=== PATIENT | male | born 1965 | race Caucasian/White ===

== ENCOUNTER 2018-03-31 15:00 | Observation (INO) ==
[2018-03-31] MEDS ORDERED: 0.9 % Sodium Chloride 1,000 ML IVC ONE (15:40)
[2018-03-31] MEDS ORDERED: Isovue-370 500 ML INFUS..BTL IV ONE (15:40)
--- NOTE | 2018-03-31 15:43 | Emergency Department Note ---
Disposition Clinical Impression: Chest pain Qualifiers: Chest pain type: unspecified Qualified Code(s): R07.9 - Chest pain, unspecified Leg pain Qualifiers: Laterality: left Qualified Code(s): M79.605 - Pain in left leg Disposition: Admitted As Inpatient Condition: Fair Referrals: Ras Gandhi DO [Primary Care Provider] - Forms: ED Satisfaction Letter Time of Disposition: 17:54 Chest Pain HPI - General Chief Complaint: ED Chest Pain Stated Complaint: chest pain Source: patient Mode of arrival: private vehicle Limitations: no limitations Vital Signs Reviewed: Yes Nursing Notes Reviewed: Yes - History of Present Illness Pt complaint: chest pain Onset (ago): hour(s) Duration: constant Onset: awoke with symptoms Pain Location: substernal Severity: moderate (But better now than it was earlier today) Severity scale (1-10): 6 Quality: heaviness Pain Radiation: back Improves with: nothing Worsens with: nothing Associated symptoms: Reports: diaphoresis, other (Complains of left leg pain for months) Treatments prior to arrival chest pain: none - Related Data Home Medications Medication Instructions Recorded Confirmed Lisinopril-HCTZ 10-12.5 [Prinzide 1 each PO DAILY 03/31/18 03/31/18 10-12.5] Allergies Allergy/AdvReac Type Severity Reaction Status Date / Time No Known Allergies Allergy Verified 03/31/18 15:02 All systems ED: reviewed and negative except as stated. Constitutional: Denies: fever, chills ENT ED: Denies: ear pain, throat pain, congestion Cardiovascular: Reports: chest pain. Denies: palpitations Respiratory: Reports: dyspnea. Denies: cough Gastrointestinal: Denies: abdominal pain, nausea, vomiting Musculoskeletal: Reports: back pain Integumentary: Denies: rash Neurological: Denies: headache Chest Pain PMH - Past Medical History Medical history: Reports: hyperlipidemia, hypertension Psychiatric history: Reports: no psych history - Social History Smoking Status: Never smoker Alcohol use: Reports: none Drug use: Reports: none Physical Exam - General Limitations: no limitations General appearance: alert, in no apparent distress - Head Head exam: atraumatic, normocephalic, normal inspection - Eye Eye exam: Present: normal appearance, PERRL, EOMI. Absent: scleral icterus, conjunctival injection - ENT ENT exam: normal exam, normal oropharynx, mucous membranes moist, normal external ear exam - Neck Neck exam: Present: normal inspection, trachea midline - Chest Chest inspection: Present: normal inspection, symmetric chest wall rise. Absent : tenderness - Respiratory Respiratory exam: Present: normal lung sounds bilaterally. Absent: respiratory distress, wheezes - Cardiovascular Cardiovascular exam: Present: regular rate, normal rhythm, normal heart sounds - Abdominal Exam Abdominal exam: Present: soft, Non-Tender - Extremities Exam Extremities exam: Present: normal inspection. Absent: pedal edema - Neurological Exam Neurological exam: Present: alert, oriented X3 - Psychiatric Psychiatric exam: Present: normal affect, normal mood - Skin Skin exam: Present: warm, dry. Absent: rash Course Course Narrative: Patient presents after waking up this morning having had an episode of chest discomfort that lasted about 20 minutes intensely but that went away although he continued to have a mild discomfort in his chest. Reportedly he was lightheaded with that. He got stuck together and went to work but was feeling bad and weak and run down at work so he went home. Called his came home from work and she saw him as being diaphoretic and she checked his blood pressures and they were apparently low and his heart rate was apparently low as well. She brought him here to emergency part. At this time. Vital signs are fine. He continues to have some discomfort in his chest although his EKG does not show any acute ischemic changes. He has been having complaint of left leg pain supposedly was scheduled to get a Doppler of his left leg but he never followed through with it. I think is unlikely nancy had such massive PE that it caused hypotension but also bradycardia and he recovered from it. Nonetheless we will check for PE as well as dissection and we will do a cardiac workup. We the patient IV fluids. Disposition will be based on diagnostic results and reevaluation. - Reevaluation(s) Reevaluation #1: CTA of the chest was negative. Labs look okay. EKG looks fine. Patient's vital signs are great and he is essentially symptomatically here in the department. So not seeing an acute life for any problem at this moment. However a patient with chest pain and hypotension and relative bradycardia has to be evaluated for inferior cardiac symptoms. I spoke with Dr. Garrido, the hospitalist. We will bring the patient into the hospital. We will have him on Lovenox. He will get serial enzymes. He will get Dopplers in the morning. Time: 17:51 - Consultations Consultation #1: Dr. Garrido, hospitalist - I discussed case with the hospitalist. He accepted the patient for admission. We will start him on Lovenox for now. Time: 17:52 Vital Signs Temperature 98.8 F 03/31/18 15:03 Pulse Rate 92 03/31/18 15:03 Respiratory Rate 18 03/31/18 15:03 Blood Pressure 137/77 03/31/18 15:03 O2 Sat by Pulse Oximetry 93 03/31/18 15:03 Temperature 98.8 F 03/31/18 15:03 Pulse Rate 86 03/31/18 17:40 Respiratory Rate 18 03/31/18 17:40 Blood Pressure 130/79 03/31/18 17:40 O2 Sat by Pulse Oximetry 96 03/31/18 17:40 Oxygen Delivery Oxygen Delivery Room Air Chest Pain - Medical Records Medical records reviewed: Yes I reviewed the patient's medical records. - Lab Data Lab results reviewed: Yes I reviewed the patient's lab results. Result diagrams: 03/31/18 15:47 03/31/18 15:47 Lab Results 03/31/18 03/31/18 03/31/18 Range/Units 15:47 15:47 15:47 WBC 9.9 (4.3-11.1) K/mcL RBC 4.84 (4.19-5.50) M/mcL Hgb 15.1 (12.9-16.9) g/dL Hct 43.9 (37.5-50.1) % MCV 90.7 (83.0-100.0) fL MCH 31.2 (28.0-33.3) pg MCHC 34.4 (31.6-35.5) g/dL RDW 12.2 (11.5-14.5) % Plt Count 189 (140-400) K/mcL MPV 10.5 (9.4-12.4) fL Immature Gran % 0.3 (0-4) % Seg Neutrophils % 82.2 % Lymphocytes % 9.1 % Monocytes % 8.1 % Eosinophils % 0.1 % Basophils % 0.2 % Neutrophils # 8.2 (1.6-8.9) K/mcL Lymphocytes # 0.9 (0.6-4.6) K/mcL Monocytes # 0.8 (0.0-1.3) K/mcL Eosinophils # 0.0 (0.0-0.6) K/mcL Basophils # 0.0 (0.0-0.2) K/mcL PT 12.5 H (9.4-12.1) Seconds INR 1.2 APTT 33.9 (26.0-36.0) Seconds D-Dimer 786 H (0-500) ng/mLFEU Sodium 135 L (136-145) mEq/L Potassium 3.8 (3.5-5.1) mEq/L Chloride 102 (98-107) mEq/L Carbon Dioxide 26 (23-29) mEq/L BUN 11 (6-20) mg/dL Creatinine 1.09 (0.70-1.30) mg/dL Est GFR ( Amer) > 60 (> 60) Est GFR (Non-Af Amer) > 60 (> 60) BUN/Creatinine Ratio 10 (6-26) Glucose 113 H (70-105) mg/dL Calculated Osmolality 280 (280-300) Lactic Acid (0.5-2.2) mmol/L Calcium 9.0 (8.6-10.3) mg/dL Total Bilirubin 0.8 (0.3-1.0) mg/dL Direct Bilirubin 0.1 (0.0-0.2) mg/dL Indirect Bilirubin 0.7 (0.0-1.2) mg/dL AST 17 (13-39) Units/L ALT 19 (7-52) Units/L Alkaline Phosphatase 82 (34-104) Units/L Troponin I < 0.03 (< 0.04) ng/mL B-Natriuretic Peptide (Less than 100) pg/mL Serum Total Protein 6.7 (6.4-8.9) g/dL Albumin 4.2 (3.5-5.7) g/dL Globulin 2.5 (2.4-3.5) g/dL Albumin/Globulin Ratio 1.7 (1.1-2.2) Lipase 22 (11-82) Units/L 03/31/18 03/31/18 Range/Units 15:47 15:47 WBC (4.3-11.1) K/mcL RBC (4.19-5.50) M/mcL Hgb (12.9-16.9) g/dL Hct (37.5-50.1) % MCV (83.0-100.0) fL MCH (28.0-33.3) pg MCHC (31.6-35.5) g/dL RDW (11.5-14.5) % Plt Count (140-400) K/mcL MPV (9.4-12.4) fL Immature Gran % (0-4) % Seg Neutrophils % % Lymphocytes % % Monocytes % % Eosinophils % % Basophils % % Neutrophils # (1.6-8.9) K/mcL Lymphocytes # (0.6-4.6) K/mcL Monocytes # (0.0-1.3) K/mcL Eosinophils # (0.0-0.6) K/mcL Basophils # (0.0-0.2) K/mcL PT (9.4-12.1) Seconds INR APTT (26.0-36.0) Seconds D-Dimer (0-500) ng/mLFEU Sodium (136-145) mEq/L Potassium (3.5-5.1) mEq/L Chloride (98-107) mEq/L Carbon Dioxide (23-29) mEq/L BUN (6-20) mg/dL Creatinine (0.70-1.30) mg/dL Est GFR ( Amer) (> 60) Est GFR (Non-Af Amer) (> 60) BUN/Creatinine Ratio (6-26) Glucose (70-105) mg/dL Calculated Osmolality (280-300) Lactic Acid 1.1 (0.5-2.2) mmol/L Calcium (8.6-10.3) mg/dL Total Bilirubin (0.3-1.0) mg/dL Direct Bilirubin (0.0-0.2) mg/dL Indirect Bilirubin (0.0-1.2) mg/dL AST (13-39) Units/L ALT (7-52) Units/L Alkaline Phosphatase (34-104) Units/L Troponin I (< 0.04) ng/mL B-Natriuretic Peptide 31 (Less than 100) pg/mL Serum Total Protein (6.4-8.9) g/dL Albumin (3.5-5.7) g/dL Globulin (2.4-3.5) g/dL Albumin/Globulin Ratio (1.1-2.2) Lipase (11-82) Units/L - Radiology Data Radiology results reviewed: Yes I reviewed the patient's radiology results. - EKG Data EKG attestation: Yes I reviewed and interpreted this EKG. EKG results narrative: Twelve-lead EKG performed at 1507 p.m. shows sinus rhythm at a rate of 92. Normal axis. Good R-wave progression across precordium. No acute ischemic changes. Intervals are within normal limits. Interpretation: no acute changes
[2018-03-31 15:55] LABS: Basophils % 0.2 %; Eosinophils % 0.1 %; Hematocrit 43.9 % (37.5-50.1); Hemoglobin 15.1 g/dL (12.9-16.9); Immature Granulocytes % 0.3 % (0-4); Lymphocytes # 0.9 K/mcL (0.6-4.6); Lymphocytes % 9.1 %; Mean Corpuscular HGB Conc 34.4 g/dL (31.6-35.5); Mean Corpuscular Hemoglobin 31.2 pg (28.0-33.3); Mean Corpuscular Volume 90.7 fL (83.0-100.0); Mean Platelet Volume 10.5 fL (9.4-12.4); Monocytes # 0.8 K/mcL (0.0-1.3); Monocytes % 8.1 %; Neutrophils # 8.2 K/mcL (1.6-8.9); Platelet Count 189 K/mcL (140-400); Red Blood Count 4.84 M/mcL (4.19-5.50); Red Cell Distribution Width 12.2 % (11.5-14.5); Segmented Neutrophils % 82.2 %
[2018-03-31 16:03] LABS: INR 1.2; Prothrombin Time 12.5 Seconds (9.4-12.1)
[2018-03-31 16:05] LABS: Activated Partial Thrombo Time 33.9 Seconds (26.0-36.0)
[2018-03-31 16:11] LABS: Alanine Aminotransferase 19 Units/L (7-52); Albumin 4.2 g/dL (3.5-5.7); Albumin/Globulin Ratio 1.7 (1.1-2.2); Alkaline Phosphatase 82 Units/L (34-104); Aspartate Amino Transferase 17 Units/L (13-39); BUN/Creatinine Ratio 10 (6-26); Bilirubin,Direct 0.1 mg/dL (0.0-0.2); Bilirubin,Indirect 0.7 mg/dL (0.0-1.2); Bilirubin,Total 0.8 mg/dL (0.3-1.0); Blood Urea Nitrogen 11 mg/dL (6-20); Carbon Dioxide 26 mEq/L (23-29); Chloride 102 mEq/L (98-107); Globulin 2.5 g/dL (2.4-3.5); Glucose 113 mg/dL (70-105); Lipase 22 Units/L (11-82); Osmolality,Calculated 280 (280-300); Potassium 3.8 mEq/L (3.5-5.1); Sodium 135 mEq/L (136-145); Total Protein 6.7 g/dL (6.4-8.9); eGFR For African Americans > 60 (> 60); eGFR For Non-African Americans > 60 (> 60)
[2018-03-31 16:20] LABS: Troponin I < 0.03 ng/mL (< 0.04)
[2018-03-31] MEDS ORDERED: *HR* Enoxaparin 80 MG/0.8 ML SYRINGE SQ STA (17:52)
[2018-03-31] MEDS ORDERED: Acetaminophen 325 MG TABLET PO PRN (17:54)
[2018-03-31] MEDS ORDERED: Aspirin 325 MG TABLET PO ONE (18:00)
[2018-04-01] MEDS ORDERED: *HR* Enoxaparin 80 MG/0.8 ML SYRINGE SQ SCH (06:00)
--- NOTE | 2018-04-01 10:29 | Internal Med History&Physical ---
Date of Encounter: 04/01/18 Time of Encounter: 10:10 Assessment and Plan (1) Chest pain Current visit: Yes Status: Acute Repeat cardiac enzymes were ordered through emergency room. Qualifiers: Chest pain type: unspecified Qualified Code(s): R07.9 - Chest pain, unspecified (2) Hypertension Current visit: Yes Status: Chronic Blood pressure will be monitored. Qualifiers: Hypertension type: essential hypertension Qualified Code(s): I10 - Essential (primary) hypertension (3) Leg pain Current visit: Yes Status: Acute Now resolved. Qualifiers: Laterality: left Qualified Code(s): M79.605 - Pain in left leg Internal Medicine - H&P: HPI Chief complaint: Chest and leg discomfort Admitted From: Emergency Dept Plans for Post Hospital Care: Home History of present illness: Mr. Alvarez is a 52 year old male who came to emergency room complaining of awakening at 0500 and having discomfort in his left knee and thigh which he describes as cramping pain. He noticed some heaviness in his chest. His checked his blood pressure and found it to be low. He thinks his pulse was also low but does not remember details. He had warm diaphoresis. After few minutes he felt better and went to work. Approximately 11 AM while at work he had return of similar symptoms. He came to emergency room and was evaluated and admitted to [facility] floor for ongoing care needs. He states he feels back to his baseline now. He denies any dyspnea or cough with the above symptoms. He has not had previous similar episodes. His cardiovascular history significant for hypertension but he denies NE heart failure angina DVT or pulmonary embolus. Past Med Surg Social Fam HX - Past Medical History Medical history: hyperlipidemia, hypertension Psychiatric history: no psych history - Social History Smoking Status: Never smoker Smokeless Tobacco Status: No Alcohol use: none Drug use: none Internal Medicine - H&P: Meds Lisinopril-HCTZ 10-12.5 [Prinzide 10-12.5] 1 each PO DAILY 03/31/18 [History] 3 Allergy/AdvReac Type Severity Reaction Status Date / Time No Known Allergies Allergy Verified 03/31/18 15:02 All Systems PM: A 10-system review of systems was performed and is negative for pertinent findings except as documented above in the HPI. Review of systems: Gen.: He states his weight has increased 15-20 pounds in the past year Cardiovascular: As per history of present illness Respiratory: He is a lifelong nonsmoker and has no known chronic lung disease GI: He has had cholecystectomy. He has occasional GERD symptoms. He denies disorders of his liver or exocrine pancreas : He denies hematuria dysuria or kidney stones Neurologic: He denies large distribution strokes or seizures. Endocrine: He denies diabetes thyroid disease or hyperlipidemia Hematology/oncology: He denies blood disorders cancers or anemia Psychiatric: He denies anxiety depression other mental health issues [place] skeletal: He denies arthritis gout or other bone joint or muscle disorders. - Constitutional Vitals: Temp Pulse Resp BP Pulse Ox 98.3 F 67 16 123/83 95 04/01/18 06:48 04/01/18 06:48 04/01/18 06:48 04/01/18 06:48 04/01/18 06:48 Exam: Gen.: He is a well-developed well-nourished male resting comfortably in bed who denies pain or dyspnea at present time. HEENT: Head is atraumatic and normal systolic. Eyes: EOMI. There is no scleral icterus. Mouth: Mucosa is moist. Neck: Supple and nontender. There is no thyromegaly or adenopathy noted. Heart: Regular without murmurs gallops or ectopics Lungs: No wheezes or crackles are heard. Abdomen: Soft and nontender. No masses or guarding are noted. Extremity: There is no cyanosis edema or clubbing noted. Dorsalis pedis and posttibial pulses are 1-2 over 2 bilaterally. Neurologic: Mental status: He is talkative and a good historian. Cranial nerves : Smile is symmetric. Forehead wrinkles bilaterally. Tongue protrudes midline. EOMI. Motor: There is no pronator drift. Cerebellar: Finger to nose is intact bilaterally. Skin: Warm and dry Internal Med - H&P Results - Labs CBC & Chem 7: 03/31/18 15:47 03/31/18 15:47 Labs: Cardiac Enzymes 03/31/18 04/01/18 Range/Units 21:36 03:54 Troponin I < 0.03 < 0.03 (< 0.04) ng/mL
[2018-04-01 10:34] VITALS: BP 112/75
--- NOTE | 2018-04-01 10:37 | Discharge Summary ---
Date of Encounter: 04/01/18 Time of Encounter: 10:10 - Discharge Diagnosis (1) Chest pain Priority: Primary Status: Resolved Qualifiers: Chest pain type: unspecified Qualified Code(s): R07.9 - Chest pain, unspecified (2) Hypertension Priority: Secondary Status: Chronic Qualifiers: Hypertension type: essential hypertension Qualified Code(s): I10 - Essential (primary) hypertension (3) Leg pain Priority: Secondary Status: Resolved Qualifiers: Laterality: left Qualified Code(s): M79.605 - Pain in left leg Hospital course: Mr. Alvarez is a 52 year old male who came to emergency room complaining of awakening at 0500 and having discomfort in his left knee and thigh which he describes as cramping pain. He noticed some heaviness in his chest. His checked his blood pressure and found it to be low. He thinks his pulse was also low but does not remember details. He had warm diaphoresis. After few minutes he felt better and went to work. Approximately 11 AM while at work he had return of similar symptoms. He came to emergency room and was evaluated and admitted to [facility] for ongoing care needs. Initial orders were written by the emergency room physician. I saw him on April 01 and performed a history physical and discharge. Repeat cardiac enzymes showed no evidence of myocardial damage. When I saw him I did not think chest pain was likely to be of myocardial ischemic origin. Etiology of the pain was not determined with certainty. Chest CTA in ER was done to further evaluate elevated d-dimer. There was no evidence of PE seen. I did not think he had significant likelihood of DVT. The etiology of elevated d-dimer was not determined with certainty. On April 01 I felt he was stable for discharge home. He will follow with his PCP Dr. Gandhi within 1 week. - Time Spent with Patient Total time spent providing and/or coordinating discharge services: - Discharge Medications Home Medications: Lisinopril-HCTZ 10-12.5 [Prinzide 10-12.5] 1 each PO DAILY 03/31/18 [History] Allergies/Adverse Reactions: 3 Allergy/AdvReac Type Severity Reaction Status Date / Time No Known Allergies Allergy Verified 03/31/18 15:02 Date of admission: 03/31/18 18:16 Primary care physician: Ras Gandhi DO - Constitutional Vitals: Temp Pulse Resp BP Pulse Ox 98.2 F 68 18 112/75 97 04/01/18 10:33 04/01/18 10:33 04/01/18 10:33 04/01/18 10:33 04/01/18 10:33 - Patient Status Disposition: Home, Self-Care Condition: Fair Overall status at discharge: patient is progressing back to baseline - Discharge Instructions Follow Up With: Ras Gandhi DO [Primary Care Provider] - 1 week - Diet and Activity Activity: resume usual activities as tolerated
[2018-04-01] MEDS ORDERED: *HR* Enoxaparin 150 MG/ML SYRINGE SQ SCH (18:00)
--- NOTE | 2018-04-03 21:17 | Electrocardiograph Report ---
[address] [address] Test Date: 2018-03-31 Pat Name: Charles Alvarez Department: [id number] Room: [facility] Gender: M Roads Supervisor: [id number] : 1965 Requested By: Los Whitaker Order Number: [id number] Reading MD: Adriel Ball Measurements Intervals [place] Rate: 92 P: 14 ND: 164 QRS: 91 QRSD: 103 T: 27 QT: 341 QTc: 391 Interpretive Statements SINUS RHYTHM INCOMPLETE RIGHT BUNDLE BRANCH BLOCK Electronically Signed On 04-03-2018 21:16:31 EDT by Adriel Ball
== END 2018-04-01 12:15 | disposition home or self-care (01) ==
LOC: INPPIK 15:00 → EMEROOPIK 15:00 → INPPIK 18:30
PROVIDERS: ADMIT Internal Medicine; ATTEND Internal Medicine